=== PATIENT | female | born 1995 | race Caucasian/White ===

== ENCOUNTER 2016-12-02 15:03 | Emergency (ER) | payer BC, OTHER ==
--- NOTE | 2016-12-02 15:14 | ER Document Report ---
ED Medical Screen (RME) - General Stated Complaint: ABSCESS Time seen by provider: 15:12 Mode of Arrival: Ambulatory Information source: Patient Notes: 21-year-old female presents to ED for headache for 2 days. She states she has had a lump on the back of her neck just below the hairline for about 4 months the lump is soft no redness no drainage. Last menstrual period 10/23/2016 I have greeted and performed a rapid initial assessment of this patient. A comprehensive ED assessment and evaluation of the patient, analysis of test results and completion of medical decision making process will be conducted by an additional ED providers.
[2016-12-02] MEDS ORDERED: DIPHENHYDRAMINE HCL 50 MG CAPSULE PO ONE (17:49)
[2016-12-02] MEDS ORDERED: PROCHLORPERAZINE MALEATE 10 MG TABLET PO ONE (17:49)
--- NOTE | 2016-12-02 18:25 | ER Document Report ---
ED Headache - General Chief Complaint: Headache Stated Complaint: ABSCESS Time seen by provider: 17:45 Mode of Arrival: Ambulatory Information source: Patient Notes: 21 yo female c/o posteior occipital headache for 4 days. Muscles hurt when she bends head forward. Usual headaches are in the front. Also worried about lump that has been on left posterior occipital neck for 4 months. Her PCP told her it was a cyst. Slightly larger, not red or tender. She wants to know if the lump has anything to do with the headache. TRAVEL OUTSIDE OF THE [place] IN LAST 30 DAYS: No Past Medical History - General Information source: Patient - Social History Smoking Status: Never Smoker Frequency of alcohol use: None Drug Abuse: None Lives with: Spouse/Significant other Family History: Reviewed & Not Pertinent Patient has suicidal ideation: No Patient has homicidal ideation: No - Medical History Medical History: Negative Renal/ Medical History: Denies: Hx Peritoneal Dialysis Surgical Hx: Negative Past Surgical History: Reports: Hx Tonsillectomy - Immunizations Hx Diphtheria, Pertussis, Tetanus Vaccination: Yes Review of Systems - Review of Systems Constitutional: No symptoms reported EENT: No symptoms reported Cardiovascular: No symptoms reported Respiratory: No symptoms reported Gastrointestinal: No symptoms reported Genitourinary: No symptoms reported Female Genitourinary: No symptoms reported Musculoskeletal: See HPI Skin: No symptoms reported Hematologic/Lymphatic: No symptoms reported Neurological/Psychological: See HPI Physical Exam - Vital signs Vitals: Temp Pulse Resp BP Pulse Ox 98.1 F 87 18 110/69 99 12/02/16 15:14 12/02/16 15:14 12/02/16 15:14 12/02/16 15:14 12/02/16 15:14 Interpretation: Normal - General General appearance: Appears well, Alert - HEENT Head: Normocephalic, Atraumatic Eyes: Normal Conjunctiva: Normal Pupils: PERRL Nerve palsy: No Mucous membranes: Normal Pharynx: Normal Neck: Supple, Other - 1 cm rubbery cyst versus lymph node left posterior occiputneck. no scalp rash. - Respiratory Respiratory status: No respiratory distress Chest status: Nontender Breath sounds: Normal Chest palpation: Normal - Cardiovascular Rhythm: Regular Heart sounds: Normal auscultation Murmur: No - Abdominal Inspection: Normal Distension: No distension Bowel sounds: Normal Tenderness: Nontender Organomegaly: No organomegaly - Back Back: Normal, Nontender - Extremities General upper extremity: Normal inspection, Nontender, Normal color, Normal ROM , Normal temperature General lower extremity: Normal inspection, Nontender, Normal color, Normal ROM , Normal temperature, Normal weight bearing. No: Ravi's sign - Neurological Neuro grossly intact: Yes Cognition: Normal Orientation: AAOx4 Padmini Coma Scale Eye Opening: Spontaneous [place] Coma Scale Verbal: Oriented [place] Coma Scale Motor: Obeys Commands Padmini Coma Scale Total: 15 Speech: Normal Motor strength normal: LUE, RUE, LLE, RLE Sensory: Normal - Psychological Associated symptoms: Normal affect, Normal mood - Skin Skin Temperature: Warm Skin Moisture: Dry Skin Color: Normal Course - Re-evaluation Re-evalutation: 12/02/16 17:45 I have consulted with the supervisory physician dr pierce [facility] Guidelines. 12/02/16 19:32 CT is negative and labs are normal I will discharge the patient to see her primary care doctor. We'll give her copies of the lab work and CT results. I also will refer her to a general surgeon for the cyst versus lymph node on the back of her neck. ERNST level now 2 - Vital Signs Vital signs: Temp Pulse Resp BP Pulse Ox 98.7 F 60 16 113/73 100 12/02/16 19:48 12/02/16 19:48 12/02/16 19:48 12/02/16 19:48 12/02/16 19:48 - Laboratory Result Diagrams: 12/02/16 18:42 12/02/16 18:42 Discharge - Discharge Clinical Impression: headache, cyst versus adenopathy post occiput Condition: Good Disposition: HOME, SELF-CARE Instructions: Neurologist, Headache ([facility]), Use of Diphenhydramine, Anti- Inflammatory Medication ([facility]), Warm Packs ([facility]) Additional Instructions: warm compress to neck muscles See the general surgeon for the cyst the back of your neck line See neurology for these headaches Return to the emergency room if worse Prescriptions: Ibuprofen [Motrin 600 mg Tablet] 600 mg PO Q8HP PRN #30 tablet PRN Reason: Forms: Return to Work Referrals: NEMO RODRIGUEZ FNP-C [Primary Care Provider] - Follow up as needed REGIS DIEGO MD [ACTIVE STAFF] - Follow up in 3-5 days
[2016-12-02 19:05] LABS: ABSOLUTE EOSINOPHILS # (AUTO) 0.1 10^3/uL (0.0-0.6); ABSOLUTE LYMPHOCYTES (AUTO) 2.5 10^3/uL (0.5-4.7); ABSOLUTE MONOCYTES (AUTO) 0.6 10^3/uL (0.1-1.4); BASOPHILS % (AUTO) 0.2 % (0-2); EOSINOPHILS % (AUTO) 0.9 % (0-6); HEMATOCRIT 40.5 % (36.0-47.0); HEMOGLOBIN 13.3 g/dL (12.0-15.5); HGB HCT DIFFERENCE -0.6; LYMPHOCYTES % (AUTO) 27.3 % (13-45); MEAN CORPUSCULAR HEMOGLOBIN 29.6 pg (27.0-33.4); MEAN CORPUSCULAR VOLUME 90 fl (80-97); MONOCYTES % (AUTO) 6.4 % (3-13); RED BLOOD COUNT 4.51 10^6/uL (3.72-5.28); RED CELL DISTRIBUTION WIDTH 13.1 % (11.5-14.0); SEGMENTED NEUTROPHILS % (AUTO) 65.2 % (42-78); WHITE BLOOD COUNT 9.1 10^3/uL (4.0-10.5)
[2016-12-02 19:25] LABS: ALANINE AMINOTRANSFERASE 20 U/L (9-52); ALBUMIN 4.7 g/dL (3.5-5.0); ALKALINE PHOSPHATASE 46 U/L (38-126); ANION GAP 10 (5-19); ASPARTATE AMINO TRANSFERASE 18 U/L (14-36); BILIRUBIN,TOTAL 0.6 mg/dL (0.2-1.3); BLOOD UREA NITROGEN 15 mg/dL (7-20); CALCIUM 9.7 mg/dL (8.4-10.2); CARBON DIOXIDE 27 mmol/L (22-30); CHLORIDE 103 mmol/L (98-107); GLUCOSE 76 mg/dL (75-110); POTASSIUM 4.2 mmol/L (3.6-5.0); SODIUM 140.4 mmol/L (137-145); TOTAL PROTEIN 7.6 g/dL (6.3-8.2)
[2016-12-02 19:57] VITALS: BP 113/73
== END 2016-12-02 19:50 | disposition home or self-care (01) ==
LOC: ER 15:03
DX: R51 Headache (principal); M79.1 Myalgia; R22.1 Localized swelling, mass and lump, neck
CPT/HCPCS: 99283; 36415; 85025; 81025; 80053; 70450; S0183